=== PATIENT | female | born 1955 | race Caucasian/White ===

== ENCOUNTER → 2016-11-25 | Outpatient (CLI) | payer OTHER ==
[~2016-11-25] VITALS: Ht 170.2 cm; Wt 74.8 kg
[~2016-11-25] MED LIST: LEVOTHYROXIN0.075 MG PO; LEVOTHYROXIN0.137 M1 PO; MOBIC15 MG PO; UNICOMPLEX M TA1 TA1 PO
--- NOTE | ~2016-11-25 | HPC ---
[facility] [place] [address] PAIN MANAGEMENT CONSULTATION Name: GILBERT MANCIA Room #: REG [facility].#: [id number] Admission: 11/25/16 Attend Phys: Myron Holden DO Discharge: Date of : 53 Report #: [id number] THIS REPORT FOR: //name// CC: Myron Mock MD DATE OF SERVICE: 11/25/2016 REFERRING PHYSICIAN: Thang Mock MD. CHIEF COMPLAINT: Low back pain and right lower extremity pain and paresthesias. HISTORY OF PRESENT ILLNESS: As you know, the patient is a 61-year-old female, who began experiencing low back pain, right lower extremity pain with paresthesias that began in April 2016. She indicates no injury, no trauma that may have led to symptoms. She states that her pain is periodic and intermittent in its presentation, shooting, electrical, numbness, tingling, and throbbing when describing pain. The patient places current pain score at anywhere from 3-4/10, daily average of 3-4/10, worst pain has been is 7-8/10. The patient states pain is exacerbated with sitting and movement, improves with repositioning and standing. She has been referred to our service to be assessed for possible lumbar radiculopathy and to provide suggestions for treatment. PAST MEDICAL HISTORY: 1. Hypothyroidism. 2. Degenerative joint disease. 3. Osteoarthritis. PAST SURGICAL HISTORY: None. SOCIAL HISTORY: The patient denies tobacco, IV, or illicit drug use. Admits to approximately 3 alcoholic beverages per week. She is working at the [employer]. She is working, not receiving workmen's compensation, nor is she trying to obtain disability benefits. She is unaccompanied today. She is not in litigation in regards to her pain. REVIEW OF SYSTEMS: Positive for wearing corrective eyewear, low back pain, right lower extremity pain with paresthesias, thyroid disease, heat and cold intolerance. All other review of systems negative per 12-point review of systems, other than those listed in history of present illness. Pain impact score 7/70 indicating mild interference with daily activities secondary to pain. ALLERGIES: ADHESIVE TAPES. [facility] [address] [place] [address] PAIN MANAGEMENT CONSULTATION Name: MANCIAGILBERT M Room #: REG [facility].#: [id number] Admission: 11/25/16 Attend Phys: Myron Holden DO Discharge: Date of : 53 Report #: [id number] CURRENT MEDICATIONS: Levothyroxine 137 mcg per day, multivitamin 1 tab per day, meloxicam 15 mg p.o. q.a.m. IMAGING: MRI of the lumbar spine obtained on 11/21/2016 shows broad-based disk bulge with inferiorly extruding disk at L3-L4. This affects the central canal and reduces it to 11 mm posterior facet degeneration, ligamentum flavum hypertrophy, causing mild left and minimal right foraminal stenosis. There was minimal disk protrusion at L5-S1, along with mild posterior degenerative changes, causing mild foraminal stenosis. Slight curvature of the lumbar spine. PHYSICAL EXAMINATION: VITAL SIGNS: Blood pressure 160/101, pulse 69, respiratory rate 16, unlabored. The patient is 97% on room air. Height 5 feet 7 inches tall, weight 165 pounds, BMI calculated 25.8. GENERAL: Well-developed, well-nourished, and well-hydrated. A 61-year-old female appearing her stated age. She is placing current pain score, anywhere from 3-4/10. HEENT: Normocephalic and atraumatic. Pupils are equal, round, and reactive to light. Extraocular muscles are intact. Sclerae are nonicteric without injection. NEUROLOGIC: Cranial nerves 2-12 are grossly intact. LUNGS: Clear. No wheezes, rhonchi, or rales. CARDIOVASCULAR: Regular. No appreciable gallop or rub. ABDOMEN: Soft, nontender, and nondistended. Normal active bowel sounds. EXTREMITIES: Showed no clubbing, no cyanosis, no edema. MUSCULOSKELETAL: Lower extremity strength appears equal and symmetrical at 5/5, intact to light touch from L1 through S2 dermatomes. Deep tendon reflexes are symmetrical at patellar and Achilles. Ankle clonus negative. Babinski is negative. Seated straight leg raising negative. Supine straight leg raising positive right. Ruth's test negative. Modified Gaenslen's is positive for axial low back pain. Ankle clonus negative. Babinski is negative. ASSESSMENT: 1. Symptomatic lumbar radiculopathy. 2. Displacement of lumbar intervertebral disk with radiculopathy. 3. Lumbosacral spondylosis with radiculopathy. 4. Lumbar degeneration. 5. Chronic intractable pain. PLAN: 1. The patient has been referred to our service by her primary care physician for evaluation for suspected lumbar radiculopathy. The patient's physical presentation along with the findings on the MRI would indicate she is suffering from a lumbar radicular pain. We discussed with the patient, treatment options for lumbar radicular pain secondary to displaced lumbar intervertebral disks. [address] [address] PAIN MANAGEMENT CONSULTATION Name: GILBERT MANCIA Room #: [facility]#: [id number] Admission: 11/25/16 Attend Phys: Myron Holden DO Discharge: Date of : 53 Report #: [id number] These treatments and would include physical therapy, stretching exercises, and core strengthening. We discussed medication management with the neuropathic pain medication and continuation of the nonsteroidal anti-inflammatories. We discussed epidural injections under fluoroscopic guidance, a spinal cord stimulator therapy and surgical options. After reviewing the risks and benefits of all proposed treatment options, the patient chose to begin with an epidural injection under fluoroscopic guidance. 2. The patient was advised the risks and benefits of lumbar epidural injection. These risks include but are not necessarily limited to bleeding, bruising, infection, worsening pain, no relief of pain, also risk of temporary or permanent muscle weakness, temporary or permanent nerve damage, possible paralysis and . The patient states, she understood and wished to proceed. 3. No medication changes were made at today's visit. The patient will continue current medical therapy as previously prescribed. 4. The patient will return to our clinic in approximately 2 weeks. At that time, we will review efficacy of today's epidural injection and determine if next in the series of epidural injections may be necessary to address ongoing or residual pain. We wish to thank the referring team for the opportunity to see this patient in consultation. We will keep you apprised of her response to treatment, as we address her ongoing symptoms. Again, we wish to thank you for the opportunity to participate in her care. PROCEDURE NOTE: DESCRIPTION OF PROCEDURE: Lumbar epidural steroid injection under fluoroscopic guidance. This is the first procedure of the first series that the patient is undergoing. After obtaining written consent, the patient was taken back to the fluoroscopy suite, placed in a prone position with pillow under the abdomen to decrease lumbar lordosis. The skin overlying the lumbosacral area was then prepped and draped in aseptic fashion. The lumbar vertebral interspace was then identified by AP fluoroscopy. The skin and subcutaneous tissue overlying the target site of injection was anesthetized with 3 mL 1% lidocaine. A 20-guage 3-1/2 inch Tuohy needle was then advanced under fluoroscopic guidance towards the epidural space using a right paramedian approach. The epidural space was identified using loss of resistance to air technique. After negative aspiration for heme or cerebrospinal fluid, a total of 1 mL of Omnipaque was injected. A lumbar epidurogram was confirmed using both AP and lateral fluoroscopy. After negative aspiration for heme or cerebrospinal fluid, 5 mL of solution containing 2 mL 40 mg per mL 80 mg total triamcinolone and 3 mL lidocaine 1% was injected in increments. Contrast spread was noted posterior [address] [address] PAIN MANAGEMENT CONSULTATION Name: GILBERT MANCIA Room #: REG [facility]#: [id number] Admission: 11/25/16 Attend Phys: Myron Holden DO Discharge: Date of : 53 Report #: [id number] epidural space. The needle was then retracted approximately half way and needle tract flushed with 1 mL of 1% lidocaine. Needle was then removed. There were no apparent sensory or motor deficits in the lower extremity following the procedure. A sterile bandage was placed over the injection site. The heart rate, pulse, oximetry and blood pressure were continuously monitored after the procedure. There were no apparent complications. The patient tolerated the procedure well and was carefully escorted to the recovery room in stable condition. There were no apparent complications. After meeting discharge criteria, the patient was then discharged home. By: [id number] Myron Holden DO /nt
[2016-11-25 13:35] VITALS: BP 160/101
== END | disposition home or self-care (01) ==
LOC: PAIN 07:07
DX: M51.16 Intervertebral disc disorders with radiculopathy, lumbar region (principal); M47.27 Other spondylosis with radiculopathy, lumbosacral region; G89.29 Other chronic pain; E03.9 Hypothyroidism, unspecified; M19.90 Unspecified osteoarthritis, unspecified site